=== PATIENT | male | born 1950 | race Caucasian/White ===

== ENCOUNTER 2016-10-23 17:18 | Inpatient (IN) | payer MEDICARE, OTHER ==
[~2016-10-23] VITALS: Ht 175.3 cm; Wt 82.1 kg
[~2016-10-23 17:18] MED LIST: ACET-1156 PO; AMLO5TAB2 PO
[2016-10-23 18:16] LABS: Albumin 3.5 g/dL (3.4-5.0); BUN/Creatinine Ratio 16.7; Bilirubin, Total 0.2 mg/dL (0.2-1.0); Potassium 4.2 mmol/L (3.5-5.1)
[2016-10-23 18:32] LABS: Basophils # (auto) 0 uL; Basophils % (auto) 0.3 % (0.0-2.0); Eosinophils # (auto) 0.1 uL; Eosinophils % (auto) 1.4 % (0.0-7.0); Hematocrit 44.8 % (41.0-53.0); Hemoglobin 14.6 g/dL (13.5-17.5); Lymphocytes # (auto) 2.2 uL; Lymphocytes % (auto) 25.6 % (10.0-50.0); Mean Corpuscular Hemoglobin 30.8 pg (28.0-32.0); Mean Corpuscular Hgb Conc. 32.5 g/dL (32.0-36.0); Mean Corpuscular Volume 94.9 fL (80.0-100.0); Mean Platelet Volume 7.7 fL (7.4-10.4); Monocytes # (auto) 0.7 uL; Monocytes % (auto) 8.4 % (0.0-12.0); Neutrophils # (auto) 5.6 uL; Neutrophils % (auto) 64.3 % (37.0-80.0); Platelet Count (auto) 275 10^3/uL (140-450); Red Cell Distribution Width 16.9 % (11.6-16.0); White Blood Cell 8.7 10^3/uL (4.4-10.8)
[2016-10-23] MEDS ORDERED: IOHEXOL 300 MG/ML 100ML BOTTLE IJ ONE (19:07)
[2016-10-23] MEDS ORDERED: SODIUM CHLORIDE 0.9% 1,000 ML IV ONE (19:30)
[2016-10-23] MEDS ORDERED: ONDANSETRON HCL 4 MG/2 ML VIAL IV ONE (19:45)
[2016-10-23] MEDS ORDERED: MORPHINE SULFATE 4 MG/ML SYRG IV ONE (19:45)
[2016-10-23 19:55] LABS: INR 0.92 (0.9-1.15); Prothrombin Time 9.5 sec (9.37-12.3)
[2016-10-23] MEDS ORDERED: HYDROmorphone HCL 2 MG/ML VL IV ONE (21:30)
[2016-10-23] MEDS ORDERED: METOCLOPRAMIDE HCL 5MG/ml INJ 2ml VIAL IV ONE (21:30)
[2016-10-23] MEDS ORDERED: PANTOPRAZOLE SODIUM 40 MG/10 ML VIAL IV ONE (22:00)
[2016-10-23] MEDS ORDERED: ONDANSETRON HCL 4 MG/2 ML VIAL IV PRN (22:00)
[2016-10-23] MEDS: GABAPENTIN 300 MG CAP PO SCH (23:02)
[2016-10-23] MEDS: ENOXAPARIN SOD 40 MG/0.4 ML SYRINGE SC SCH (23:02)
[2016-10-23 23:30] VITALS: BP 131/80
[2016-10-23] MEDS: SODIUM CHLORIDE 0.9% 1,000 ML IV SCH (23:42)
[2016-10-24] MEDS: MORPHINE SULFATE 4 MG/ML SYRG IV PRN ×4 (00:11→13:21)
[2016-10-24 05:00] VITALS: BP 124/73
[2016-10-24 05:39] LABS: Basophils # (auto) 0 uL; Basophils % (auto) 0.3 % (0.0-2.0); Eosinophils # (auto) 0.2 uL; Eosinophils % (auto) 3.1 % (0.0-7.0); Hematocrit 38.6 % (41.0-53.0); Hemoglobin 12.5 g/dL (13.5-17.5); Lymphocytes # (auto) 1.8 uL; Lymphocytes % (auto) 25.4 % (10.0-50.0); Mean Corpuscular Hemoglobin 30.8 pg (28.0-32.0); Mean Corpuscular Hgb Conc. 32.3 g/dL (32.0-36.0); Mean Corpuscular Volume 95.3 fL (80.0-100.0); Mean Platelet Volume 7.6 fL (7.4-10.4); Monocytes # (auto) 0.7 uL; Monocytes % (auto) 9.2 % (0.0-12.0); Neutrophils # (auto) 4.4 uL; Platelet Count (auto) 226 10^3/uL (140-450); Red Cell Distribution Width 17.1 % (11.6-16.0); White Blood Cell 7.1 10^3/uL (4.4-10.8)
[2016-10-24] MEDS: GABAPENTIN 300 MG CAP PO SCH ×3 (05:53→20:15)
[2016-10-24 06:01] LABS: Albumin 2.9 g/dL (3.4-5.0); Blood Urea Nitrogen 16 mg/dL (7-18); Calcium 7.8 mg/dL (8.5-10.1); Chloride 110 mmol/L (98-107); Potassium 3.8 mmol/L (3.5-5.1); Sodium 145 mmol/L (136-145)
[2016-10-24 06:04] LABS: Anion Gap 8 (5-15); Aspartate Aminotransferase 10 U/L (15-37); BUN/Creatinine Ratio 18.2; Carbon Dioxide 27 mmol/L (21-32); GFR African American 111 mL/min; GFR Non-African American 92 mL/min; Glucose 114 mg/dL (74-106)
[2016-10-24 06:05] LABS: Alkaline Phosphatase 52 U/L (45-117); Bilirubin, Total < 0.1 mg/dL (0.2-1.0); Total Protein 5.9 g/dL (6.4-8.2)
[2016-10-24 06:40] LABS: Urine Bilirubin Negative (Negative); Urine Blood Negative /uL (Negative); Urine Color Yellow (Yellow); Urine Glucose Normal (Normal); Urine Hyaline Cast FEW /lpf (0 - 2); Urine Ketone Negative (Negative); Urine Mucus FEW (None Seen); Urine Nitrite Negative (Negative); Urine RBC 16 /hpf (0 - 3); Urine Squamous Epithelial Cell FEW /hpf (<5); Urine Urobilinogen Normal (Negative)
[2016-10-24 09:00] VITALS: BP 111/70
[2016-10-24] MEDS: PANTOPRAZOLE SODIUM 40 MG/10 ML VIAL IV SCH (11:20)
[2016-10-24] MEDS: SODIUM CHLORIDE 0.9% 1,000 ML IV SCH (11:24)
[2016-10-24] MEDS: amLODIPine BESYLATE 5 MG TAB PO SCH (11:24)
[2016-10-24] MEDS: HYDROcodone-ACET 5/325MG TAB PO PRN ×2 (12:13→20:15)
[2016-10-24 12:40] VITALS: BP 134/84
[2016-10-24] MEDS: SUMAtriptan SUCCINATE 25 MG TAB PO PRN (16:00)
[2016-10-24] MEDS ORDERED: HYDROmorphone HCL 2 MG/ML VL IV ONE (16:30)
[2016-10-24 17:00] VITALS: BP 133/73
[2016-10-24] MEDS: ENOXAPARIN SOD 40 MG/0.4 ML SYRINGE SC SCH (20:15)
[2016-10-24 21:32] VITALS: BP 133/71
[2016-10-25] MEDS: SODIUM CHLORIDE 0.9% 1,000 ML IV SCH ×2 (00:29→16:12)
[2016-10-25] MEDS: MORPHINE SULFATE 4 MG/ML SYRG IV PRN ×3 (02:40→20:37)
[2016-10-25 05:22] VITALS: BP 128/70
[2016-10-25 05:49] LABS: Basophils # (auto) 0 uL; Basophils % (auto) 0.2 % (0.0-2.0); Eosinophils # (auto) 0.1 uL; Hematocrit 43.6 % (41.0-53.0); Hemoglobin 14.1 g/dL (13.5-17.5); Lymphocytes # (auto) 1.3 uL; Lymphocytes % (auto) 18.1 % (10.0-50.0); Mean Corpuscular Hemoglobin 30.7 pg (28.0-32.0); Mean Corpuscular Hgb Conc. 32.3 g/dL (32.0-36.0); Mean Corpuscular Volume 94.8 fL (80.0-100.0); Mean Platelet Volume 7.6 fL (7.4-10.4); Monocytes # (auto) 0.6 uL; Neutrophils % (auto) 71.7 % (37.0-80.0); Platelet Count (auto) 223 10^3/uL (140-450)
[2016-10-25 05:58] LABS: INR 0.97 (0.9-1.15)
[2016-10-25 06:01] LABS: Calcium 8.6 mg/dL (8.5-10.1); Potassium 3.8 mmol/L (3.5-5.1)
[2016-10-25 06:05] LABS: Albumin 3.2 g/dL (3.4-5.0); BUN/Creatinine Ratio 13.8; Magnesium 2.1 mg/dL (1.6-2.6)
[2016-10-25 06:07] LABS: Bilirubin, Total 0.1 mg/dL (0.2-1.0); Total Protein 6.6 g/dL (6.4-8.2)
[2016-10-25] MEDS: GABAPENTIN 300 MG CAP PO SCH ×3 (06:23→21:42)
[2016-10-25 08:00] VITALS: BP 122/53
[2016-10-25] MEDS: SUMAtriptan SUCCINATE 25 MG TAB PO PRN (08:13)
[2016-10-25] MEDS: amLODIPine BESYLATE 5 MG TAB PO SCH (10:31)
[2016-10-25] MEDS: PANTOPRAZOLE SODIUM 40 MG/10 ML VIAL IV SCH (10:31)
[2016-10-25] MEDS ORDERED: GASTROGRAFIN 120 ML SOL ONE (10:37)
[2016-10-25 12:00] VITALS: BP 120/71
[2016-10-25 16:00] VITALS: BP 111/69
[2016-10-25] MEDS ORDERED: KETOROLAC TROMETH 30 MG/ML 1ML VIAL IV ONE (16:45)
[2016-10-25] MEDS: ENOXAPARIN SOD 40 MG/0.4 ML SYRINGE SC SCH (20:22)
[2016-10-25 22:00] VITALS: BP 113/61
[2016-10-26] MEDS: MORPHINE SULFATE 4 MG/ML SYRG IV PRN ×2 (00:57→05:30)
[2016-10-26] MEDS: HYDROcodone-ACET 5/325MG TAB PO PRN ×2 (02:25→09:00)
[2016-10-26] MEDS ORDERED: CYCLOBENZAPRINE HCL 10 MG TAB PO ONE (02:45)
[2016-10-26 05:05] VITALS: BP 111/69
[2016-10-26 05:09] LABS: Basophils # (auto) 0 uL; Basophils % (auto) 0.3 % (0.0-2.0); Eosinophils # (auto) 0.1 uL; Hematocrit 44.1 % (41.0-53.0); Hemoglobin 14.5 g/dL (13.5-17.5); Lymphocytes # (auto) 1.5 uL; Lymphocytes % (auto) 21.8 % (10.0-50.0); Mean Corpuscular Hgb Conc. 32.8 g/dL (32.0-36.0); Mean Corpuscular Volume 94.5 fL (80.0-100.0); Mean Platelet Volume 7.7 fL (7.4-10.4); Monocytes # (auto) 0.6 uL; Monocytes % (auto) 9.2 % (0.0-12.0); Neutrophils # (auto) 4.5 uL; Neutrophils % (auto) 66.7 % (37.0-80.0); Platelet Count (auto) 220 10^3/uL (140-450); Red Cell Distribution Width 16.4 % (11.6-16.0); White Blood Cell 6.8 10^3/uL (4.4-10.8)
[2016-10-26 05:25] LABS: INR 1.02 (0.9-1.15); Prothrombin Time 10.5 sec (9.37-12.3)
[2016-10-26] MEDS: GABAPENTIN 300 MG CAP PO SCH ×2 (05:30→14:59)
[2016-10-26 05:35] LABS: BUN/Creatinine Ratio 18.6; Calcium 8.2 mg/dL (8.5-10.1); Magnesium 2.2 mg/dL (1.6-2.6); Potassium 3.8 mmol/L (3.5-5.1)
[2016-10-26] MEDS: SODIUM CHLORIDE 0.9% 1,000 ML IV SCH (05:35)
[2016-10-26 05:38] LABS: Bilirubin, Total 0.3 mg/dL (0.2-1.0); Total Protein 6.4 g/dL (6.4-8.2)
[2016-10-26] MEDS ORDERED: SODIUM CHLORIDE LOCK 10 ML ONE (07:36)
[2016-10-26] MEDS ORDERED: LIDOCAINE VISCOUS 2% 15ML UD ONE (07:36)
[2016-10-26] MEDS ORDERED: MIDAZOLAM HCL 5 MG/ML-1ML VIAL ONE (07:37)
[2016-10-26] MEDS ORDERED: fentaNYL CITRATE 100 MCG/2 ML VL ONE (07:37)
[2016-10-26] MEDS ORDERED: diphenhdrAMINE HCL 50 MG/1 ML VL ONE (07:37)
[2016-10-26 08:00] VITALS: BP 138/88
[2016-10-26] MEDS: amLODIPine BESYLATE 5 MG TAB PO SCH (10:07)
[2016-10-26] MEDS: PANTOPRAZOLE SODIUM 40 MG/10 ML VIAL IV SCH (10:08)
[2016-10-26 12:00] VITALS: BP 112/73
[2016-10-26] MEDS ORDERED: MIDAZOLAM HCL 5 MG/ML-1ML VIAL IV ONE (12:36)
[2016-10-26] MEDS ORDERED: LIDOCAINE VISCOUS 2 % SOL 100ML MT ONE (12:36)
[2016-10-26] MEDS ORDERED: diphenhdrAMINE HCL 50 MG/1 ML VL IV ONE (12:39)
[2016-10-26] MEDS ORDERED: fentaNYL CITRATE 100 MCG/2 ML VL IV ONE (12:39)
[2016-10-26] MEDS ORDERED: HYOSCYAMINE SULF 0.125 MG TAB PO PRN (12:45)
[2016-10-26] MEDS ORDERED: HYOS0.1220 PO (14:40)
[2016-10-26] MEDS ORDERED: PANT40T PO (14:40)
[2016-10-26 16:00] VITALS: BP 107/66
[2016-10-26] MEDS ORDERED: PANTOPRAZOLE 40 MG TAB PO SCH (22:00)
== END 2016-10-26 18:35 | disposition home or self-care (01) | DRG 392 ==
LOC: EDBD 17:18 → ER 17:27 → TELE 17:28 → TELE-WESTW 23:07 → WEST WING 10-24 00:53
PROVIDERS: ADMIT Family Medicine; ATTEND Internal Medicine
PROC: 0DB68ZX Excision of Stomach, Via Natural or Artificial Opening Endoscopic, Diagnostic (ICD-10-PCS; principal; 2016-10-26 12:33)
DX: K29.80 Duodenitis without bleeding (principal); K76.0 Fatty (change of) liver, not elsewhere classified; I10 Essential (primary) hypertension; G62.9 Polyneuropathy, unspecified; F17.210 Nicotine dependence, cigarettes, uncomplicated; G43.909 Migraine, unspecified, not intractable, without status migrainosus; Z98.890 Other specified postprocedural states; Z90.49 Acquired absence of other specified parts of digestive tract
CPT/HCPCS: 36415; 74177; 74250; 76705; 80053; 81001; 83605; 83690; 83735; 84484; 85025; 85049; 85610; 86850; 86900; 86901; 87081; 93005; 96374; 96375; C9113; J1885; J2250; J2405